=== PATIENT | female | born 1980 | race Caucasian/White ===

== ENCOUNTER → 2020-05-23 15:35 | Outpatient (CLI) | payer BC, SELFPAY ==
--- NOTE | ~2020-05-23 | MM_ITS ---
EXAMINATION: MM screening [facility] BI w kady HISTORY: Screening TECHNIQUE: Craniocaudal and mediolateral oblique 3-D tomosynthesis images were obtained and synthetic 2-D images were generated. CAD analysis was submitted and interpreted. COMPARISON: No prior mammogram is available for comparison at this institution. BREAST PARENCHYMAL COMPOSITION: There are scattered areas of fibroglandular density. FINDINGS: There is a mass in the upper central aspect of the left breast anteriorly. There is no mamm ographic evidence for malignancy in the right breast. IMPRESSION: 1. Left breast mass anteriorly in the upper central aspect. 2. Additional mammographic views and possible breast ultrasound are recommended. BI-RADS Category 0: Incomplete: Needs additional imaging evaluation. Reviewed, dictated and finalized at location A. IMPRESSION: 1. Left breast mass anteriorly in the upper central aspect. 2. Additional mammographic views and possible breast ultrasound are recommended . BI-RADS Category 0: Incomplete: Needs additional imaging evaluation.
== END ==
PROVIDERS: PCP Nurse Practitioner Psychiatric/Mental Health; Visit Provider Nurse Practitioner
DX: Z12.31 Encounter for screening mammogram for malignant neoplasm of breast (principal)
CPT/HCPCS: 77063; 77067

== ENCOUNTER 2020-06-10 07:58 | Outpatient (CLI) | payer BC, SELFPAY ==
--- NOTE | ~2020-06-10 | MMUS_ITS ---
EXAMINATION: MM diagnostic mammo unilat LT, US breast LT limited HISTORY: Follow-up left breast mass TECHNIQUE: Additional 3-D tomosynthesis images of the left breast were performed and synthetic 2-D im ages were generated. CAD analysis was submitted and interpreted. High resolution left breast ultrasou nd was performed. COMPARISON: 05/23/2020 BREAST PARENCHYMAL COMPOSITION: BREAST PARENCHYMAL COMPOSITION: There are scattered areas of fibroglandular density. FINDINGS: MAMMOGRAPHIC FINDINGS: There is a 6 mm mass in the upper central aspect of the left breast anteriorly. There are no suspicio us calcifications or architectural distortion. ULTRASOUND: Left breast ultrasound, limited: There is a 5 mm intramammary lymph node in the periareolar location of the left breast at 12:00, 1 cm from the nipple corresponding to the mammographic finding. IMPRESSION: 1. No evidence for malignancy in the left breast. Benign findings. 2. Routine yearly screening mammogram and regular clinical breast examination are recommended. BI-RADS Category 2: Benign finding(s). Reviewed, dictated and finalized at location B. IMPRESSION: 1. No evidence for malignancy in the left breast. Benign findings. 2. Routine yearly screening mammogram and regular clinical breast examination a re recommended. BI-RADS Category 2: Benign finding(s).
== END 2020-06-10 07:59 ==
PROVIDERS: Visit Provider Obstetrics & Gynecology Gynecology
DX: R92.8 Other abnormal and inconclusive findings on diagnostic imaging of breast (principal)
CPT/HCPCS: 76642; 77065

== ENCOUNTER → 2022-01-04 14:44 | Outpatient (CLI) | payer BC, SELFPAY ==
--- NOTE | ~2022-01-04 | MM_ITS ---
EXAMINATION: MM screening [facility] BI w kady HISTORY: Screening mammogram TECHNIQUE: Craniocaudal and mediolateral oblique 3-D tomosynthesis images were obtained and synthetic 2-D images were generated. CAD analysis was submitted and interpreted. COMPARISON: 06/10/2020, 05/23/2020 BREAST PARENCHYMAL COMPOSITION: There are scattered areas of fibroglandular density. FINDINGS: There is a stable mass in the subareolar aspect of the left breast, consistent with benign finding. There is no suspicious mass, calcification, or architectural distortion to suggest malignanc y in either breast. There has been no suspicious interval change. IMPRESSION: 1. No mammographic evidence of malignancy. 2. Recommend routine screening mammography in one year. BI-RADS Category 2: Benign finding(s). Reviewed, dictated and finalized at location A.
== END ==
PROVIDERS: PCP Nurse Practitioner; Visit Provider Nurse Practitioner
DX: Z12.31 Encounter for screening mammogram for malignant neoplasm of breast (principal)
CPT/HCPCS: 77063; 77067

== ENCOUNTER → 2023-04-01 07:10 | Outpatient (CLI) | payer BC, SELFPAY ==
--- NOTE | ~2023-04-01 | MM_ITS ---
EXAMINATION: MM screening [facility] BI w kady HISTORY: Screening TECHNIQUE: Craniocaudal and mediolateral oblique 3-D tomosynthesis images were obtained and synthetic 2-D images were generated. CAD analysis was submitted and interpreted. COMPARISON: Comparison to multiple prior studies sequentially, with oldest reviewed study dated 12/2019. BREAST PARENCHYMAL COMPOSITION: There are scattered areas of fibroglandular density. FINDINGS: There is no evidence of suspicious mass, calcification, or architectural distortion to sugg est malignancy in either breast. There has been no suspicious interval change. IMPRESSION: 1. No mammographic evidence of malignancy. 2. Recommend routine screening mammography in one year. BI-RADS Category 1: Negative Reviewed, dictated and finalized at location A.
== END ==
PROVIDERS: PCP Nurse Practitioner; Visit Provider Nurse Practitioner
DX: Z12.31 Encounter for screening mammogram for malignant neoplasm of breast (principal)
CPT/HCPCS: 77063; 77067

== ENCOUNTER 2025-04-29 10:36 | Emergency (ER) | payer BC, SELFPAY ==
--- OUTSIDE RECORDS SUMMARY | 2008-01-29 03:10 | XMS_ITS | Continuity of Care Document ---
Author Organization [facility] Address [address] [place] [address] utive [facility] [address] [place] [address] Phone Care Team Providers Care L Tacker Name Role Phone Jessika Govea Unavailable Unavailable Procedures Procedure Date Eye Exam & Treatment Refraction Advance Directives Directive Yes / No Effective Date File Name No Information Encounters Encounter Description Practice Location Reason(s) For Visit Diagnoses Date Provider Providers Copied on Encounter [facility], [address] [place] [address] [address], [place], [place], [id number], [place] tel:[phone] [facility] [place] No Information 2-200 8 Xuan Rosen. [address] [facility] [place] , [address], [place], [address], [place]. tel:[phone] Family History Family Member Type Diagnosis Age At Onset No Information Payers Payer name Insurance type Covered alliance party ID Authoriza tion(s) No Information Social History Type Description Quantity Date Captured Comments Sex Female Smoking Status No Information Chief Complaint And Reason For Visit No Information Reason For Referral Reason For Referral No Information History Of Present Illness Encounter Date Complaint History Of Prese nt Illness No Information Functional Status Date Functional Assessmen t No Information Instructions Date Instruction Additional Infor mation No Information Assessments Type Assessment Date No Information Patient Care Teams Name Effective Dates (start - stop) Status Members No Information
--- OUTSIDE RECORDS SUMMARY | 2008-01-29 03:10 | XMS_ITS | Continuity of Care Document ---
Author Organization [facility] Address [address] [place] [address] utive [facility] [address] [place] [address] Phone Care Team Providers Care Flight Manager Name Role Phone Jessika Govea Unavailable Unavailable Procedures Procedure Date Eye Exam & Treatment Refraction Advance Directives Directive Yes / No Effective Date File Name No Information Encounters Encounter Description Practice Location Reason(s) For Visit Diagnoses Date Provider Providers Copied on Encounter [facility], [address] [place] [address] [address], [place], [place], [id number], [place] tel:[phone] [facility] [place] No Information 2-200 8 Xuan Rosen. [address] [facility] [place] , [address], [place], [address], [place]. tel:[phone] Family History Family Member Type Diagnosis Age At Onset No Information Payers Payer name Insurance type Covered constitution party ID Authoriza tion(s) No Information Social [...]
[2025-04-29 10:46] VITALS: BP 138/93; PULSE 79; RESP 18; TEMP 36.4; O2SAT 99
--- NOTE | 2025-04-29 11:13 | ED.URI ---
HPI - URI/Sore Throat General Chief Complaint: Upper Respiratory Infection Stated Complaint: Sinus Infection Time Seen by Provider: 04/29/25 11:02 Source: patient and RN notes reviewed Mode of arrival: ambulatory Limitations: no limitations History of Present Illness HPI Narrative: Patient presents today complaining of a 10+ day history of cough, congestion with sinus pressure, headache, postnasal drip, ear popping, sneezing. Denies shortness of breath or fever. She has tried Sudafed, Mucinex DM, and Flonase without much improvement. No history of asthma or COPD. Denies known sick contacts. Related Data Home Medications ?Medication ?Instructions ?Recorded ?Confirmed ?Last Taken ?Type fluoxetine 20 mg capsule 40 mg 04/29/25 Unknown History levonorgestrel (Mirena) 1 device intrauterine ONCE 04/29/25 04/29/25 Unknown History Allergies Allergy/AdvReac Type Severity Reaction Status Date / Time rabeprazole Allergy Severe Loss of Verified 04/29/25 10:56 Consciousness codeine Allergy Mild Unknown Verified 04/29/25 10:56 Sulfa (Sulfonamide Allergy Mild Unknown Verified 04/29/25 10:56 Antibiotics) iohexol (From contrast - CT, Allergy Rash Verified 04/29/25 10:56 X-RAY) PMFSH Comments At time of signature, I have reviewed and agree with nursing past medical, surgical, social and family history unless otherwise noted. Please see nursing chart for further information. There is no relevant family history pertinent to the presenting complaint Exam Narrative: GENERAL: Mildly ill-appearing, well-nourished, and in no acute distress. HEAD: Normocephalic, atraumatic. EYES: EOMI. No redness or drainage. Conjunctivae normal. ENT: Mucous membranes pink and moist. Nares congested with rhinorrhea. Bilateral nasal turbinates are erythematous and edematous. Bilateral maxillary sinus tenderness to palpation. TMs normal bilaterally. Throat normal. Uvula midline. NECK: Normal AROM. Supple. No lymphadenopathy. CHEST: No respiratory distress. Clear to auscultation. HEART: Regular rate and rhythm. No murmur appreciated. EXTREMITIES: Normal range of motion. No edema. SKIN: Warm, dry, no rash. Capillary refill normal. Normal skin turgor. NEURO: No focal deficits. Alert and oriented x3. Gait steady. PSYCH: Normal affect. No signs of depression or anxiety. Course Course Level of Care: Express Care Visit Vital Signs Vital signs: Vital Signs Temperature 97.6 F 04/29/25 10:46 Pulse Rate 79 04/29/25 10:46 Respiratory Rate 18 04/29/25 10:46 Blood Pressure 138/93 H 04/29/25 10:46 Pulse Oximetry 99 04/29/25 10:46 Oxygen Delivery Room Air 04/29/25 10:46 Temperature 97.6 F 04/29/25 10:46 Pulse Rate 79 04/29/25 10:46 Respiratory Rate 18 04/29/25 10:46 Blood Pressure 138/93 H 04/29/25 10:46 Pulse Oximetry 99 04/29/25 10:46 Oxygen Delivery Room Air 04/29/25 10:46 Reviewed MDM - URI/Sore Throat MDM Narrative Medical decision making narrative: 45-year-old female patient presents the 10+ day history of upper respiratory symptoms for which OTC treatments have not been helpful. Upon exam, patient has swollen and erythematous nasal turbinates with bilateral tender maxillary sinuses. Patient will be treated with a 7 day course Augmentin for presumed bacterial sinusitis due to symptoms in length of illness. She may continue OTC treatment as well. Patient agrees with plan. Vital signs stable. Anticipatory guidance given. Differential Diagnosis Differential diagnosis: Likely upper respiratory infection, otitis media, sinusitis, viral infection, bronchitis and pharyngitis Critical Care Time Critical Care Time Critical Care Time: No Discharge Plan Discharge Clinical Impression: Sinusitis Qualifiers: Sinusitis location: maxillary Chronicity: acute Recurrence: non-recurrent Qualified Code(s): J01.00 - Acute maxillary sinusitis, unspecified Patient Disposition: Home Condition: Stable Instructions: Antibiotic Form, Sinusitis (ED) Additional Instructions: Please take the Augmentin as prescribed. You may continue [id number] medications as needed for symptom control. Follow-up with your PCP in 3 days if symptoms are not improving. Your blood pressure was elevated above 120/80 today at Urgent Care. This puts you above the threshold for follow up. Please schedule a followup visit with your personal physician as soon as possible, for further evaluation and treatment. Even blood pressure exceeding 120/80 may indicate pre-hypertension. Patient Language: Telugu Prescriptions: New amoxicillin-pot clavulanate 875-125 mg tablet 1 tablet PO Q12H 7 Days Qty: 14 0RF No Action fluoxetine 20 mg capsule 40 mg Mirena 21 mcg/24hr (up to 8 yrs) 52 mg intrauterine device 1 device intrauterine ONCE Rx Instructions: as a single dose Follow-up/Referrals: PHYSICIAN,CHILDBIRTH AND INFANT CARE TEACHER [Primary Care Provider, Internal Medicine] Stand Alone Forms: Work/School Release IP Time of Disposition: 11:13
--- OUTSIDE RECORDS SUMMARY | 2025-04-29 12:05 | XMS_ITS | Patient Health Record ---
Author Organization [facility] Address [address] [place] [address] Care Team Providers Care Payable Representative Name Role Phone Sebastian Hu Primary Care Provider Reason For Referral No Information Immunizations Vaccine Route Administration Date Status Comme nts COVID-19 Moderna 1ST IM Intramuscular 09/29/2020 Administered EUA date 0. Screening reviewed and consent signed. Patient tolerated well. COVID-19 Moderna 2nd IM Intramuscular 10/27/2020 Administered EUA date 0. Screening reviewed and consent signed. Plan Of Treatment No Information Insurance Providers Payer Name Payer Address Payer Phone Subscriber Number Group Number Insured Name Patient Relationship to Insured Coverage Start Date Coverage End Date [facility] [address] [place] [address] [id number] Stephanie Camacho Self - patient is the insured 1
== END 2025-04-29 11:18 | disposition home or self-care (01) ==
PROVIDERS: Emergency Provider Nurse Practitioner
DX: J01.00 Acute maxillary sinusitis, unspecified (principal)
CPT/HCPCS: 99203; G0463

== ENCOUNTER 2025-06-22 12:33 | Outpatient (CLI) | payer BC, SELFPAY ==
--- NOTE | ~2025-06-22 | MM_ITS ---
EXAMINATION: MM screening rachelle BI w kady HISTORY: Screening TECHNIQUE: Craniocaudal and mediolateral oblique 3-D tomosynthesis images were obtained and synthetic 2-D images were generated. CAD analysis was submitted and interpreted. COMPARISON: Comparison to multiple prior studies sequentially, with oldest reviewed study dated , 05/23/2020 BREAST PARENCHYMAL COMPOSITION: There are scattered areas of fibroglandular density. FINDINGS: There is no evidence of suspicious mass, calcification, or architectural distortion to suggest malignancy in either breast. IMPRESSION: 1. No mammographic evidence of malignancy. 2. Recommend routine screening mammography in one year. BI-RADS Category 1: Negative Reviewed, dictated and finalized at location B. L ASSEMBLER
== END 2025-06-22 12:34 | disposition home or self-care (01) ==
LOC: MICIMG 12:33
PROVIDERS: PCP Obstetrics & Gynecology Gynecology; Visit Provider Obstetrics & Gynecology Gynecology
DX: Z12.31 Encounter for screening mammogram for malignant neoplasm of breast (principal)
CPT/HCPCS: 77063; 77067

== ENCOUNTER 2025-07-12 00:20 | Day surgery (SDC) | payer BC, SELFPAY ==
[2025-06-23 11:11] VITALS: BMI 33.5
--- OUTSIDE RECORDS SUMMARY | 2025-07-12 00:23 | XMS_ITS | Encounter Summary ---
Author Organization [facility] Address [facility] [place] [address] Care Team Providers Care Motion Picture Photographer Name Role Phone Jonna Mendoza BAG BUNDLER Primary Care Provider [phone] Encounter Details Date Type Department Care Team (Late st Contact Info) Description 2024 [employer] [address] [place] [address] Jonna Mendoza, BAG BUNDLER [address] [place] [address], [facility] [place] [address] Covid Social History Tobacco Use Types Packs/Day Years Used Date Smoking Tobacco: Every Day Cigarettes 0.5 29.9 Started: 1995 Smokeless Tobacco: Never Comments:Smokes about 1/2pk per day, but lately has cut down Alcohol Use Standard Drinks/Week Comments Yes 0 (1 standard drink = 0.6 oz pure alcohol) socially every few weeks 4-6 beers in one setting AUDIT-C Answer Date Recorded Frequency of Alcohol Consumption Never 04/02/2019 Average Number of Drinks Not on file 019 Frequency of Binge Drinking Not on file 03/19 PHQ-2 Answer Date Recorded Patient Health Questionnaire-2 Score 0 01/03/2024 Education Answer Date Recorded What is the highest level of school you have completed or the highest degree you have received? Some college, no degree 05/04/2019 Comments No Sex and Gender Information Value Date Recorded Sex Assigned at Female 05/04/2019 3:30 PM CDT Legal Sex Female 7:00 PM CDT Gender Identity Female 05/04/2019 3:30 PM CDT Sexual Orientation Straight 05/04/2019 3: 30 PM CDT documented as of this encounter Plan of Treatment Not on file documented as of this encounter Visit Diagnoses Not on filedocumented in this encounter Additional Health Concerns Assessment Noted Time PHQ-9 Depression Total Score: 3 07/05/20 21 9:57 AM SHOT LIGHTER documented as of this encounter Care Teams Motion Picture Photographer Relationship Specialty Start Date End Date Jonna Mendoza, TRIP PCP - General NURSE PRACTITIONER 02/27/24 02/04/25 documented as of this encounter
--- OUTSIDE RECORDS SUMMARY | 2025-07-12 00:23 | XMS_ITS | Encounter Summary ---
Author Organization [facility] Address [address] [place] [address] Care Team Providers Care Electrical Project Engineer Name Role Phone Sandra Cuba VETERINARY SURGEON Primary Care Provider [phone] Jonna Mendoza HOT DIP TINNING SUPERVISOR Primary Care Provider [phone] Encounter Details Date Type Department Care Team (Late st Contact Info) Description 10/28/[address] [employer] [address] [address] [employer], [facility] Provider results Social History Tobacco Use Types Packs/Day Years [...] Date Recorded Patient Health Questionnaire-2 Score 0 06/18/2023 Education Answer Date Recorded What is the [...] Total Score: 3 07/05/20 21 9:57 AM PROFESSOR OF LANGUAGES documented as of this encounter Care Teams Electrical Project Engineer Relationship Specialty Start Date End Date Sandra Cuba APRN PCP - General NURSE PRACTITIONER 06/18/23 02/26/24 Jonna Mendoza, TRIP PCP - General NURSE PRACTITIONER 02/27/24 02/04/25 documented as of this encounter
--- OUTSIDE RECORDS SUMMARY | 2025-07-12 00:23 | XMS_ITS | Encounter Summary ---
Author Organization [facility] Address [address] [place] [address] Care Team Providers Care Asbestos Abatement Worker Name Role Phone Sandra Cuba APRN Primary Care Provider [phone] Jonna Mendoza MEDICAL SUPPORT ASSISTANT Primary Care Provider [phone] Encounter Details Date Type Department Care Team (Late st Contact Info) Description 01/07/2024 [employer] [facility] [address] [place] [address] Jonna Mendoza, MEDICAL SUPPORT ASSISTANT [address], [address] [place] [address] Wrist Social History Tobacco Use Types Packs/Day Years [...] Total Score: 3 07/05/20 21 9:57 AM PLATINUM SMITH documented as of this encounter Care Teams Asbestos Abatement Worker Relationship Specialty Start Date End Date Sandra Cuba APRN PCP - General NURSE PRACTITIONER 06/18/23 02/26/24 Jonna Mendoza NP PCP - General NURSE PRACTITIONER 02/27/24 02/04/25 documented as of this encounter
--- OUTSIDE RECORDS SUMMARY | 2025-07-12 00:23 | XMS_ITS | Patient Health Record ---
Author Organization Counts include 234 beds at the [facility] Address [address] [place] [address] Care Team Providers Care Helix Coil Winder Name Role Phone Sebastian Hu Primary Care [...] Insured Coverage Start Date Coverage End Date [facility] [address] [place] [address] [id number] Stephanie Camacho Self - patient is the insured 1
--- OUTSIDE RECORDS SUMMARY | 2025-07-12 00:23 | XMS_ITS | Clinical Summary ---
Author Organization [facility] Address [address] [place] [address] Care Team Providers Care Grinder Set Up Operator Thread Tool Name Role Phone Unavailable Primary Care Provider Unavailabl e Allergies Active Allergy Reactions Criticality Noted Date Comments Codeine Headache,Vomiting Low 04/28/2019 Iodine Itching Low 06/07/2016 Rabeprazole Syncope High 04/12/2012 Hospitalized after exposure to drug Sulfa Antibiotics Hives,Itching Low 09/04/2013 Bupropion Other (see comment) 06/18/2023 Abnormal behaviors Medications cetirizine (ZYRTEC) 10 MG tablet Take 1 tablet (10 mg total) by mouth daily as needed. Active sertraline 100 MG tabletIndication s:Depression, unspecified depression type Take 1 tablet (100 mg total) by mouth daily. 30 tablet 4 07/05/2021 Active SEMAGLUTIDE,0.25 OR 0.5MG/DOS, SC 01/12/2024 Ac tive Active Problems Problem Noted Date Diagnosed Date Nicotine dependence 04/02/2016 Chronic sinusitis with recurrent bronchitis 04/20 Immunizations Immunization Administration Dates Next Due Influenza (Generic) 09/04/2013 Influenza Adult (Generic) 06/13/2015 Rabies Vaccine 09/09/2008, 9,04/20/2004,04/20/2004,2001,02/10/2002,01/27/2002,01/27/2002,01/20/2002,0 01/20/2002 Td 04/20/2004 Td (TDVAX) 04/20/2004 Tdap (Generic) 02/10/2014,02/10/2014 Family History Medical History Relation Comments Hyperlipidemia Father Breast Cancer Maternal Aunt Cancer Maternal Grandfather blood/bone Heart Disease Bicuspid aorti c valve Maternal Grandmother Hx of measles Maternal Grandmother Diabetes Mother Heart Disease Mother Hypertension Mother Other Mother bicuspid aortic valve replacement 03/2023 Mental Health (committed suicide) Paternal Grand father Stroke Paternal Grandmother Relation Status Comments Father Alive Maternal Aunt Maternal Grandfather Maternal Grandmother Mother Alive Paternal Grandfather Paternal Grandmother Social History Tobacco Use Types Packs/Day Years Used Date Smoking Tobacco: Every Day Cigarettes 0.5 29.9 Started: 1995 Smokeless Tobacco: Never Tobacco Cessation:Ready to Q uit: Yes; Counseling Given: Yes Comments:Smokes about 1/2pk per day, but lately [...] Orientation Straight 05/04/2019 3: 30 PM CDT Last Filed Vital Signs Vital Sign Reading Time Taken Comments Blood Pressure 156/92 03/10/2024 3:42 PM CDT Pulse 64 03/10/2024 3:42 PM CDT Temperature 36.4 C (97.6 F) 03/10/2024 3:15 PM CDT Respiratory Rate 16 03/10/2024 3:42 PM CDT Oxygen Saturation 98% 03/10/2024 3:42 PM CDT Inhaled Oxygen Concentration - - Weight 94.3 kg (208 lb) 03/10/2024 12:49 PM CDT Height 172.7 cm (5' 8) 03/10/2024 12:49 PM CDT Body Mass Index 31.63 03/10/2024 12:49 PM CDT Plan of Treatment Health Maintenance Due Date Last Done Comments Colorectal Cancer Screening Colonoscopy (10 Years) 1980 Hepatitis B Vaccines (1 of 3 - 19+ 3-dose series) 1999 Pneumococcal Vaccine: Pediatrics (0 to 5 Years) and At-Risk Patients (6 to 49 Years) (1 of 2 - PCV) 1999 HPV Vaccines (1 - 3-dose SCDM series) 2007 Annual Physical 07/05/2022 07/05/2021 DTaP, Tdap and Td Vaccines (3 - Td or Tdap) 02/11/2024 02/10/2014, 02/10/2014, 04/20/2004, Additional history exists PHQ-2 (Physician [place]) 08/19/2024 01/03/2024 Mammogram Screening 04/01/2025 04/01/2023, 01/04/2022, 06/10/2020, Additional history exists COVID-19 Vaccine ( season) 2025 10/27/2020, 09/29/2020 Influenza Adult (#1) 2025 06/13/2015, 09/04/19 14 Cervical Cancer Screening Pap Smear (Age 30 to 64) Every 3 Years 06/07/2025 06/07/2022, 01/21/2020 Cervical Cancer Screening Pap with HPV Testing (Age 30 to 64) Every 5 Years 12/14/2027 12/13/2022, 12/12/2021 Cervical Cancer Screening with HPV 12/14/2027 Hepatitis C 10/11/2053 Postponed from 1998 (Patient Refused) Hepatitis A Vaccines Aged Out No long er eligible based on patient's age to complete this topic Meningococcal B Vaccine Aged Out No l onger eligible based on patient's age to complete this topic Meningococcal Vaccine Aged Out No melinda elyse eligible based on patient's age to complete this topic RSV Immunizations Under 20 Months Aged Out No longer eligible based on patient's age to complete this topic Procedures Procedure Name Priority Date/Time Associated Diagnosis Comments MAMMOGRAM GENERIC (SCAN ORDER) 04/01/2023 OUTSIDE CYTOPATH CERV/VAG IN TERPRET (PAP) 12/13/2022 OUTSIDE CYTOPATH CERV/VAG IN TERPRET (PAP) (SCAN ORDER) 06/07/2022 from Last 3 Months or Most Recently Relevant to Health Maintenance Results * MAMMOGRAM GENERIC (04/01/2023) Anatomical Region Laterality Modality Other 04/01/2023 [employer] [facility] Scanned SCANNING Final Resu lt * PAP SMEAR WITH HPV (12/13/2022) 12/13/2022 [employer] [facility] Scanned SCANNING Final Resu lt * PAP SMEAR (06/07/2022) 06/07/2022 [employer] [facility] Scanned SCANNING Final Resu lt from Last 3 Months or Most Recently Relevant to Health Maintenance Insurance
--- OUTSIDE RECORDS SUMMARY | 2025-07-12 00:23 | XMS_ITS | Encounter Summary ---
Author Organization [facility] Address [address] [place] [address] Care Team Providers Care Aircraft Cleaner Name Role Phone Jonna Mendoza BUSINESS SERVICES CLERK Primary Care Provider [phone] Encounter Details Date Type Department Care Team (Late st Contact Info) Description 10/23/2024 [employer] Message [employer] [facility] Office [address] [place] [address] [place], [facility] Provider Update CC Social History Tobacco Use Types Packs/Day Years [...] Noted Time PHQ-9 Depression Total Score: 3 11/17/20 21 9:57 AM HOSPICE BEREAVEMENT COORDINATOR documented as of this encounter Care Teams Aircraft Cleaner Relationship Specialty Start Date End Date Jonna Mendoza, TRIP PCP - General NURSE PRACTITIONER 02/27/24 02/04/25 documented as of this encounter
--- OUTSIDE RECORDS SUMMARY | 2025-07-12 00:23 | XMS_ITS | Clinical Summary ---
Author Organization [facility] Address [address] [place] [address] Care Team Providers Care Senior Web Designer Name Role Phone Earl Tang PA-C Primary Care Provider [phone] Source Comments [facility],non-owned Affiliates and Associated Physician Practices is amultiple site organization consisting of ambulatory clinics and hospital sitesin [place], [place], [place] and [place]. This disclosure is being madepursuant to the Care Everywhere program and may not contain all information available regarding this patient. 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 Gender Identity Not on file Sexual Orientation Not on file Plan of Treatment Health Maintenance Due Date Last Done Comments COLOGUARD (AGES 45-75) - COL ON CA SCREENING 1980 COLON MONITORING 1980 COLONOSCOPY - COLON CA SCREENING 1980 CT COLONOGRAPHY - COLON CA SCREENING 1980 Colorectal Cancer Screening 1980 FIT - COLON CA SCREENING 1980 FLEX SIG - COLON CA SCREENING 1980 LIPID TESTING 1980 MAMMOGRAM 1980 HIV SCREENING 1995 HEPATITIS C SCREENING 03/19/1998 DTAP/TDAP/TD VACCINES (1 - Tdap) 1999 HEPATITIS B VACCINE (1 of 3 - 19+ 3-dose series) 1999 PAP SMEAR 2001 HPV VACCINE (1 - 3-dose SCDM series) 2007 Cervical Cancer Screening 2010 PAP with HPV 2010 DEPRESSION SCREENING 08/19/2024 COVID-19 VACCINE ( - 2024-2 6 season) 2025 INFLUENZA VACCINE (#1) 2025 ZOSTER VACCINE (1 of 2) 2030 HIB VACCINE Aged Out No longer eligi ble based on patient's age to complete this topic MENINGOCOCCAL (Group B) VACC INE SHARED DECISION-MAKING Aged Out No longer eligibl e based on patient's age to complete this topic MENINGOCOCCAL GROUPS A/C/Y/W VACCINE Aged Out No longer eligible b ased on patient's age to complete this topic PNEUMOCOCCAL VACCINE Aged Out No long er eligible based on patient's age to complete this topic Care Teams Senior Web Designer Relationship Specialty Start Date End Date Earl Tang PA-C [address] [address] [place] [address] PCP - General 02/22/11
--- OUTSIDE RECORDS SUMMARY | 2025-07-12 00:23 | XMS_ITS | Encounter Summary ---
Author Organization [facility] Address [address] [place] [address] Care Team Providers Care Air Compressor Engineer Name Role Phone Skylar Mcwilliams SUPERVISOR LINE DEPARTMENT Primary Care Provider Lidya Degroot SUPERVISOR LINE DEPARTMENT Primary Care Provider Sandra Perez BILLET CUTTER Primary Care Provider [phone] Jonna Mendoza SUPERVISOR LINE DEPARTMENT Primary Care Provider [phone] Encounter Details Date Type Department Care Team (Late st Contact Info) Description 07/08/2020 [employer] Message Enc [facility] Family & Internal Medicine - [place] [address] [place] [address] Jenniffer Gil, [place] [address] [address] RE: Test Results Social History Tobacco Use Types Packs/Day Years Used Date Smoking Tobacco: Every Day Cigarettes Smokeless Tobacco: Never Comments:Smokes about 1/2pk per day, but lately has cut down Alcohol Use Standard Drinks/Week Comments Yes 0 (1 standard drink = 0.6 oz pur e alcohol) Socially AUDIT-C Answer Date Recorded Frequency of Alcohol Consumption Never 04/02/2019 Average Number of Drinks Not on file 019 Frequency of Binge Drinking Not on file 03/19 PHQ-2 Answer Date Recorded PHQ-2 Score - If the patient scores above 3, please move on to questions 3-9 0 07/05/2020 Education Answer Date Recorded What is the [...] filedocumented in this encounter Additional Health Concerns Infection Onset Date Last Indicated Resolved Time COVID-19 Rule Out 07/05/2020 07/06/2020 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
--- OUTSIDE RECORDS SUMMARY | 2025-07-12 00:23 | XMS_ITS | Encounter Summary ---
Author Organization [facility] Address [address] [place] [address] Care Team Providers Care Buttonhole Maker Name Role Phone Lidya Sanchez BAG SEWER Primary Care Provider Sandra Perez APRN Primary Care Provider [phone] Jonna Mendoza BAG SEWER Primary Care Provider [phone] Encounter Details Date Type Department Care Team (Late st Contact Info) Description 10/03/2021 [place] Message Enc [facility] Medical [facility] Family & Internal Medicine [address] [address] [place], [facility] Provider lab Social History Tobacco Use Types Packs/Day Years [...] Total Score: 3 07/05/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
[2025-07-12 08:53] VITALS: BP 148/94; PULSE 85; RESP 20; TEMP 35.9; O2SAT 100; BMI 33.2
[2025-07-12] MEDS: LACTATED RINGERS 1,000 ML 150 ML IV CONT (09:04)
--- NOTE | 2025-07-12 09:22 | P.PNAN_ITS ---
Anes - Initial Pre Proc Eval Procedure: Operation Date: 07/12/25 10:00 Proposed Procedures p Screening Colonoscopy - Emiliano Thakkar MD Date/Time: 07/12/25 09:22 Surgeon: Emiliano Thakkar MD Pre Op Diagnosis: Encounter for screening for malignant neoplasm of Patient Data Age: 45 Gender: F Height: 1.73 m Weight: 99.1 kg Last Vital Signs Temp 96.7 F L 07/12/25 08:53 Pulse 85 07/12/25 08:53 Resp 20 07/12/25 08:53 BP 148/94 H 07/12/25 08:53 Pulse Ox 100 07/12/25 08:53 O2 Del Method Room Air 07/12/25 08:53 Allergies Allergy/AdvReac Type Severity Reaction Status Date / Time rabeprazole Allergy Severe Loss of Verified 07/12/25 08:50 Consciousness codeine Allergy Mild Unknown Verified 07/12/25 08:50 Sulfa (Sulfonamide Allergy Mild Unknown Verified 07/12/25 08:50 Antibiotics) iohexol (From contrast - CT, Allergy Rash Verified 07/12/25 08:50 X-RAY) Home Medications ?Medication ?Instructions ?Recorded ?Confirmed ?Type amoxicillin 875 mg-potassium 1 tablet PO Q12H 7 days # 14 tabs 04/29/25 06/23/25 Rx clavulanate 125 mg tablet fluoxetine 20 mg capsule 40 mg PO QPM 04/29/25 History levonorgestrel (Mirena) 1 device intrauterine ONCE 0 04/29/25 07/12/25 History Patient hx anesthesia problems: none Family hx anesthesia problems: none Results Review: All pre-operative results and documents have been reviewed as part of the pre- operative evaluation. [facility] Social History Social History Years smoked: 20 Smoking status: Former smoker Tobacco type: cigarettes and e-cigarettes/vaping Alcohol intake: current Anes - Eval Final PreProcedure Day of Procedure 07/12/25 09:22 Patient weight: obese Lungs: normal air movement Airway: Mallampati scale class II Neurological: alert and oriented Last oral intake: >/= 8 hours ASA classification: II Emergent: no Anesthetic plan: proceed Anesthesia type and monitoring: general GIVS and standard monitoring Results Review: All pre-operative results and documents have been reviewed as part of the pre- operative evaluation. 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 Informed Consent: The patient's anesthetic plan and its attendant risks and benefits were discussed with the patient/family/POA. Questions were solicited and answers provided to the satisfaction of the patient/family/POA.
--- NOTE | 2025-07-12 09:41 | PM.HPGS ---
History of Present Illness History of Present Illness Consent: Risks, benefits, and alternatives have been discussed and questions answered. Patient agrees to proceed with procedure. Chief complaint: Encounter for screening for malignant neoplasm of Narrative: Stephanie Camacho is a 45 year old female here for screening colonoscopy, had one but about 20 years ago Review of Systems Review of Systems: All systems reviewed & are unremarkable except as noted in HPI and below PMFSH Past Medical History Medical History (Updated 07/12/25 @ 09:41 by Emiliano Thakkar MD) Colon cancer screening Social History Social History Years smoked: 20 Smoking status: Former smoker Tobacco type: cigarettes and e-cigarettes/vaping Alcohol intake: current Meds Home Medications and Allergies Home Medications ?Medication ?Instructions ?Recorded ?Confirmed ?Type amoxicillin 875 mg-potassium 1 tablet PO Q12H 7 days #14 tabs 04/29/25 06/23/25 Rx clavulanate 125 mg tablet fluoxetine 20 mg capsule 40 mg PO QPM 04/29/25 07/12/25 History levonorgestrel (Mirena) 1 device intrauterine ONCE 04/29/25 07/12/25 History Allergies Allergy/AdvReac Type Severity Reaction Status Date / Time rabeprazole Allergy Severe Loss of Verified 07/12/25 08:50 Consciousness codeine Allergy Mild Unknown Verified 07/12/25 08:50 Sulfa (Sulfonamide Allergy Mild Unknown Verified 07/12/25 08:50 Antibiotics) iohexol (From contrast - CT, Allergy Rash Verified 07/12/25 08:50 X-RAY) Vital Signs Vital Signs - 24 hr 07/12/25 08:53 Temperature 96.7 F L Pulse Rate 85 Respiratory Rate 20 Blood Pressure 148/94 H Pulse Oximetry 100 Oxygen Delivery Room Air Exam Const: General: comfortable and no acute distress HENMT: Face/Nose/Sinus: Normal nares present Eyes: General: appearance normal, both eyes and all related structures Resp: Auscultation: clear to auscultation bilaterally Cardio: Rate: regular rate Rhythm: regular rhythm GI: Inspection: non-distended GI Palp: Yes Soft to palpation Skin: General skin exam: normal color Extrem: General: normal to inspection Psych: Mental Status: mental status grossly normal Assessment and Plan Assessment and plan (1) Colon cancer screening: Code(s): Z12.11 - Encounter for screening for malignant neoplasm of colon Status: Acute Assessment and Plan: colonoscopy
[2025-07-12 09:56] VITALS: BP 117/87; PULSE 88; RESP 19; O2SAT 100
--- NOTE | 2025-07-12 09:56 | S_PTH ---
PATIENT: Stephanie Camacho LOC: JAMIE Sánchez#:[id number] AGE/SX: 45/F ROOM: RE07/12/[address]: Emiliano Thakkar MD : 1980 BED: DIS: 07/12/2025 SPEC #: [id number] RECD: 07/12/25 11:47 STATUS: ADRIEN REAlison #: [id number] ERIC: 07/12/25 09:[address]: Emiliano Thakkar DEPT: [facility] Surgical RECD BY: Kailee Montgomery ENTERED: 07/12/25 11:47 SP TYPE: Surgical OTHR DR: COMBAT RIFLE CREWMEMBER PHYSICIAN Tissues: A - Colon Polypectomy Procedures: Hematoxylin and Eosin Stain Gross and Microscopic Level 4
[2025-07-12 10:06] VITALS: BP 113/83; PULSE 80; RESP 20; O2SAT 100
[2025-07-12 10:16] VITALS: BP 128/63; PULSE 76; RESP 20; O2SAT 100
[2025-07-12 11:52] LABS: BEDSIDEPREGUCG Positive (Negative)
== END 2025-07-12 10:20 | disposition home or self-care (01) ==
PROVIDERS: Visit Provider Internal Medicine Gastroenterology
PROC: 0DJD8ZZ Inspection of Lower Intestinal Tract, Via Natural or Artificial Opening Endoscopic (ICD-10-PCS; CPT 45378; principal; 2025-07-12 10:00)
DX: Z12.11 Encounter for screening for malignant neoplasm of colon (principal); K63.5 Polyp of colon; K57.30 Diverticulosis of large intestine without perforation or abscess without bleeding; K64.8 Other hemorrhoids; Z87.891 Personal history of nicotine dependence; E66.9 Obesity, unspecified; Z68.33 Body mass index [BMI] 33.0-33.9, adult
CPT/HCPCS: 45385; 88305; J2704; J7120